=== PATIENT | male | born 1955 | race Caucasian/White ===

== ENCOUNTER 2023-10-22 15:47 | Outpatient (CLI) | payer BC, SELFPAY ==
--- NOTE | ~2023-10-22 | XR_ITS ---
XR elbow LT min 3V Ordering provider: Carlos Manuel Leyva MD History: . PAIN IN ELBOW, RADICULOPATHY, CERVICAL REGION . Comparison: None. FINDINGS: BONES: No acute fracture or dislocation. JOINT SPACES: Normal. SOFT TISSUES: Normal. No definite joint effusion. IMPRESSION: No acute osseous abnormality left elbow. Reviewed, dictated and finalized at location A.
--- NOTE | ~2023-10-22 | XR_ITS ---
XR_CERV2-3V_CR Ordering provider: Carlos Manuel Leyva MD History: . PAIN IN ELBOW, RADICULOPATHY, CERVICAL REGION . Comparison: None. FINDINGS: VERTEBRAL BODIES: Anterolisthesis at the level of C5-C6. Otherwise, Normal height and alignment. No v isible fracture or subluxation. The dens is intact. DISK SPACES: Narrowing of the disc spaces C4-C5, C5-C6 and C6-C7. Multilevel uncovertebral joint oste oarthritic changes. PARASPINOUS SOFT TISSUES: No prevertebral soft tissue swelling. IMPRESSION: No acute osseous abnormality cervical spine. Multilevel degenerative disc disease. Reviewed, dictated and finalized at location A. IMPRESSION: No acute osseous abnormality cervical spine. Multilevel degenerative disc disea se.
--- NOTE | ~2023-10-22 | XR_ITS ---
XR elbow RT min 3V Ordering provider: Carlos Manuel Leyva MD History: . PAIN IN ELBOW, RADICULOPATHY, CERVICAL REGION . Comparison: None. FINDINGS: BONES: No acute fracture or dislocation. JOINT SPACES: Normal. Osteophytes seen in the olecranon posteriorly suggestive of osteoarthritic barnett ges. SOFT TISSUES: Unremarkable. No definite joint effusion. IMPRESSION: No acute osseous abnormality of the right elbow. Reviewed, dictated and finalized at location A.
== END 2023-10-22 15:48 | disposition home or self-care (01) ==
LOC: CHSIMG 15:50
PROVIDERS: PCP Family Medicine; Visit Provider Family Medicine
DX: M25.529 Pain in unspecified elbow (principal); M54.12 Radiculopathy, cervical region; M50.30 Other cervical disc degeneration, unspecified cervical region
CPT/HCPCS: 72040; 73080

== ENCOUNTER 2024-03-16 12:58 | Outpatient (CLI) | payer BC, SELFPAY ==
--- OUTSIDE RECORDS SUMMARY | 2024-03-16 13:08 | XMS_ITS | Clinical Summary ---
Author Organization [facility] Address [address] [place] [address]. [place] [address] [place] [address] Care Team Providers Care Mobile Marketing Manager Name Role Phone Carlos Manuel Leyva MD Primary Care Provider [phone] Berny Christianson MD Unavailable Allergies Active Allergy Reactions Criticality Noted Date Comments Atorvastatin Myalgias 06/12/2023 Rosuvastatin Myalgias 11/12/2023 Medications aspirin 81 MG chewable tablet Chew 1 tablet (81 mg total) by mouth daily. 30 tablet 4 Active nitroglycerin (NITROSTAT) 0.[address] 1 tablet (0.4 mg total) under the tongue every 5 (five) minutes as needed for Chest Pain. Maximum of 3 doses. 25 tablet 1 4 10/14/19 25 Active lisinopril (PRINIVIL) 20 MG tablet Take 1 tablet (20 mg total) by mouth daily. 90 tablet 2 4 Active metoprolol succinate ER (TOPROL-XL) 25 MG 24 hr tablet Take 1 tablet (25 mg total) by mouth daily. 90 tablet 2 4 Active ezetimibe (ZETIA) 10 MG tabletIndicati ons:Hyperlipid emia TAKE ONE TABLET BY MOUTH DAILY 30 tablet 3 5 Active ezetimibe (ZETIA) 10 MG tabletIndicati ons:Hyperlipid emia Take 1 tablet (10 mg total) by mouth daily. 30 tablet 3 4 02/26/19 25 Discontinued Active Problems Problem Noted Date Diagnosed Date CAD (coronary artery disease) 12/31/2022 Dyslipidemia 12/31/2022 NSTEMI (non-ST elevated myoc ardial infarction) ([facility]) 11/22/2022 Encounters Date Type Department Care Team Description 01/16/2024 [facility] [address] [place], [place] [id number] Evelyn Bosch, [employer] Medication Information (DC- rosuvastatin) from Last 3 Months Social History Tobacco Use Types Packs/Day Years Used Date Smoking Tobacco: Every Day Cigars Smokeless Tobacco: Never Alcohol Use Standard Drinks/Week Comments Yes 3.3 (1 standard drink = 0.6 oz p ure alcohol) Sex and Gender Information Value Date Recorded Sex Assigned at Male 11/26/2022 8:08 AM CDT Legal Sex Male 4:46 PM CDT Gender Identity Male 11/26/2022 8:08 AM CDT Sexual Orientation Straight 11/26/2022 8: 08 AM CDT Last Filed Vital Signs Vital Sign Reading Time Taken Comments Blood Pressure 136/86 10/14/2023 11:47 AM CDT Pulse 86 10/14/2023 11:47 AM CDT Temperature 36.6 ??C (97.9 ??F) 11/23/2022 11:49 AM C DT Respiratory Rate 18 11/23/2022 7:33 AM CDT Oxygen Saturation 96% 10/14/2023 11:47 AM CDT Inhaled Oxygen Concentration - - Weight 95.3 kg (210 lb) 10/14/2023 11:47 AM CDT Height 175.3 cm (5' 9 ) 10/14/2023 11:47 AM CDT Body Mass Index 31.01 10/14/2023 11:47 AM CDT Plan of Treatment Upcoming Encounters Date Type Department Care Team (Late st Contact Info) Description 04/12/2024 12:00 PM [employer] Office Visit [facility], [address] [place] [address] Justyna Oscar, ANP-BC [facility]. [address] [place] [address] Health Maintenance Due Date Last Done Comments Colorectal Cancer Screening Colonoscopy (10 Years) 1955 Pneumococcal Vaccine: 65+ Years (1 of 2 - PCV) 04/24/1963 Hepatitis C 04/24/1975 DTaP, Tdap and Td Vaccines ( 1 - Tdap) 1976 Zoster Vaccines (1 of 2) 04/24/2007 RSV Immunization or 60+ Years (1 - Risk 60-74 years 1-dose series) 2017 COVID-19 Vaccine (3 - 2023-2 5 season) 2023 02/28/2020, 02/07/2020 Influenza Adult (#1) 2023 AAA SCREENING Completed 11/22/2022 Meningococcal B Vaccine Aged Out No l onger eligible based on patient's age to complete this topic Meningococcal Vaccine Aged Out No antionette karyn eligible based on patient's age to complete this topic RSV Immunizations Under 20 Months Aged Out No longer eligible b ased on patient's age to complete this topic Procedures Procedure Name Priority Date/Time Associated Diagnosis Comments CT ABD+PEL W CON STAT 11/22/2022 2:45 AM CDT from Last 3 Months or Most Recently Relevant to Health Maintenance Results * CT ABD+PEL W IV CON ONLY (11/22/2022 2:45 AM CDT) Anatomical Region Laterality Modality Abdomen Computed Tomogra phy 11/22/2022 2:54 AM CDT Impressions 11/22/2022 2:57 AM CDT IMPRESSION: 1. ??Fatty infiltration of the liver 2. ??Diverticulosis without evidence of diverticulitis 3. ??Degenerative changes and vascular calcifications noted (see separate chest CT dictation) Referred By: ?? Interpreted By: Boone Mims MD, 11/22/2022 2:54 AM Narrative 11/22/2022 2:57 AM CDT INDICATION: Nausea and vomiting DOSE OPTIMIZATION: This facility uses dose optimization techniques as appropriate to perform exams, including at least one of the following techniques: 1. ??Automated exposure control. 2. ??Adjustment of the mA and/or kV according to patient size (this includes techniques or standardized protocols for targeted exams where dose is matched to the indication/reason for exam, i.e. extremities or head). 3. Use of iterative reconstructive technique. TECHNIQUE: CT abdomen and pelvis was performed with IV contrast COMPARISON: None FINDINGS: See separate chest CT dictation There are clips in the gallbladder fossa. ??There is mild fatty infiltration of the liver. ??The spleen, pancreas, adrenal glands are within normal limits. ??Calcifications in the region of the pancreas are likely vascular. ??Atherosclerotic changes of aorta and branching vessels are noted. The bladder is nondistended. ??No free fluid in the pelvis is seen. The presence of stool, lack of oral contrast, lack of distention limit evaluation. ??There are few scattered colonic diverticuli noted. ??The appendix is visualized and within normal limits. ??No small bowel distention is seen. No periaortic lymphadenopathy by size criteria is noted. There are degenerative changes in the spine No suspicious renal lesion is seen within the limits of the phase of contrast. ??No hydronephrosis or hydroureter is seen. Procedure Note Gus Mims MD - 11/22/2022 INDICATION: Nausea and vomiting DOSE OPTIMIZATION: This facility uses dose optimization techniques asappropriate to perform exams, including at least one of the followingtechniques: 1. Automated exposure control. 2. Adjustment of the mA and/or kV according to patient size (thisincludes techniques or standardized protocols for targeted exams wheredose is matched to the indication/reason for exam, i.e. extremities orhead). 3. Use of iterative reconstructive technique. TECHNIQUE: CT abdomen and pelvis was performed with IV contrast COMPARISON: None FINDINGS: See separate chest CT dictation There are clips in the gallbladder fossa. There is mild fattyinfiltration of the liver. The spleen, pancreas, adrenal glands arewithin normal limits. Calcifications in the region of the pancreas arelikely vascular. Atherosclerotic changes of aorta and branching vesselsare noted. The bladder is nondistended. No free fluid in the pelvis is seen. The presence of stool, lack of oral contrast, lack of distention limitevaluation. There are few scattered colonic diverticuli noted. Theappendix is visualized and within normal limits. No small boweldistention is seen. No periaortic lymphadenopathy by size criteria is noted. There are degenerative changes in the spine No suspicious renal lesion is seen within the limits of the phase ofcontrast. No hydronephrosis or hydroureter is seen. IMPRESSION: 1. Fatty infiltration of the liver 2. Diverticulosis without evidence of diverticulitis 3. Degenerative changes and vascular calcifications noted (see separatechest CT dictation) Referred By: Interpreted By: Boone Mims MD, 11/22/2022 2:54 AM us Roma Rangel MD CT Final Result from Last 3 Months or Most Recently Relevant to Health Maintenance [place] [address] [place] [address] Advance Directives * Full Code (Latest Code Status on File) Date Activated Date Inactivated Comments 11/22/2022 11:04 AM 11/23/2022 6:45 PM Care Teams Mobile Marketing Manager Relationship Specialty Start Date End Date Carlos Manuel Leyva MD [address] [place] [address] PCP - General FAMILY PRACTICE 11/22/22 Berny Christianson MD [id number] [place] [address] Consulting Physician CARDIOVASCULAR DISEASE 11/22/22
--- NOTE | 2024-03-16 14:00 | NEURO_ITS ---
Impression: # Complains of tingling sensation of right hand. Non-diabetic. ? # Normal Nerve Conduction Study. # No Carpal Tunnel Syndrome or ulnar neuropathy. ? # Needle/EMG exam not requested. ? # Clinical correlation recommended. Nerve Conduction Studies Anti Sensory Summary Table ?Stim Site NR Peak (ms) P-T Amp (?V) Site1 Site2 Delta-P (ms) Dist (cm) Terrance (m/s) Right Median Anti Sensory (2-3nd Digit) Wrist ? 3.1 19.3 Wrist 2-3nd Digit 3.1 14.0 45 Wrist ? 3.1 15.1 Wrist 2-3nd Digit 3.1 14.0 45 Right Radial Anti Sensory (Base 1st Digit) Wrist ? 2.5 23.9 Wrist Base 1st Digit 2.5 0.0 Right Ulnar Anti Sensory (5th Digit) Wrist ? 2.5 25.0 Wrist 5th Digit 2.5 14.0 56 Motor Summary Table ?Stim Site NR Onset (ms) O-P Amp (mV) Site1 Site2 Delta-0 (ms) Dist (cm) Terrance (m/s) Right Median Motor (Abd Poll Brev) Wrist ? 3.4 4.5 Elbow Wrist 5.6 31.0 55 Elbow ? 9.0 2.7 Right Ulnar Motor (Abd Dig Minimi) Wrist ? 2.3 4.7 A Elbow Wrist 5.8 32.0 55 A Elbow ? 8.1 3.6 F Wave Studies ?NR F-Lat (ms) L-R F-Lat (ms) Right Median (Mrkrs) (Abd Poll Brev) ? 29.67 Right Ulnar (Mrkrs) (Abd Dig Min) ? 29.10 ? ?? MTDD
== END 2024-03-16 12:59 | disposition home or self-care (01) ==
LOC: ANHNEURO 13:01
PROVIDERS: PCP Family Medicine; Visit Provider Family Medicine
DX: G56.21 Lesion of ulnar nerve, right upper limb (principal)
CPT/HCPCS: 95909